=== PATIENT | female | born 2000 | race Asian ===

== ENCOUNTER 2022-10-10 19:48 | Inpatient (IN) ==
[2022-10-10 20:35] LABS: Appearance Urine Clear (Clear); Bilirubin Urine Negative (Negative); Blood Urine Negative (Negative); Color Urine Yellow; Glucose Urine UA Negative (Negative); Ketones Urine Negative (Negative); Leukocyte Esterase Urine Negative (Negative); Nitrite Urine Negative (Negative); Protein Urine Negative (Negative); Specific Gravity Urine 1.023 (1.000-1.030); Urobilinogen Urine Negative (Negative)
[2022-10-10 20:53] LABS: Basophils # (auto) 0.03 K/uL (0.00-0.20); Basophils % (auto) 0.5 %; Eosinophils # (auto) 0.05 K/uL (0.00-0.50); Eosinophils % (auto) 0.9 %; Hematocrit (blood only) 38.2 % (37.0-47.0); Hemoglobin 13.1 g/dl (12.0-16.0); Immature Granulocytes # (auto) 0.01 K/uL (0.01-0.20); Immature Granulocytes % (auto) 0.2 %; Lymphocytes # (auto) 2.16 K/uL (1.20-3.40); Lymphocytes % (auto) 36.9 %; Mean Corpuscular Hgb Conc 34.3 g/dL (32.0-36.0); Mean Corpuscular Volume 84.5 fL (80.0-100.0); Mean Platelet Volume 8.8 fL (9.4-12.4); Monocytes % (auto) 6.8 %; Neutrophils % (auto) 54.7 %; Platelet Count 348 K/uL (130-400); RDW Coefficient of Variation 11.9 % (11.5-14.5); RDW Standard Deviation 36.8 fL (36.4-46.3); Red Blood Count 4.52 M/uL (4.20-5.40); White Blood Count 5.85 K/ul (4.8-10.8)
[2022-10-10 21:04] LABS: Acetaminophen < 3 ug/ml (10-30); Salicylate < 3.0 mg/dl (3.0-30)
[2022-10-10 21:09] LABS: Amphetamines+Metham, Urine Pos (Neg); Barbiturates, Urine Neg (Neg); Benzodiazepine, Urine Neg (Neg); Cocaine, Urine Neg (Neg); MDMA (Ecstacy), Urine Neg (Neg); Methadone, Urine Neg (Neg); Opiate, Urine Neg (Neg); Phencyclidine, Urine Neg (Neg)
[2022-10-10 21:09] LABS: Albumin Globulin Ratio 1.9 (0.9-2); Albumin Level 4.9 gm/dl (3.4-5.0); BUN Creatinine Ratio 18.2 (10-20); Bilirubin,Total 0.6 mg/dl (0.2-1.0); Calcium 9.8 mg/dl (8.6-10.3); Creatinine Clr Calc Pharmacy 96.4 ml/min; Est GFR (African American) 128.8 ml/min; Est GFR (Non-African American) 111.1 ml/min; Globulin 2.6 gm/dl (2.5-4.0); Potassium 3.8 mmol/L (3.5-5.1); Total Protein 7.5 gm/dl (6.0-8.3)
--- NOTE | 2022-10-10 22:54 | Emergency Department Note ---
Impression & Plan Feeling suicidal ADMIT ED Provider Note HPI: The patient is a 22-year-old female with history of ADHD, anxiety and depression, who presents emergency department with a chief complaint of suicidal thoughts. Patient states she has been dealing with these thoughts on and off for about 1 year. Patient states that starting up at school recently here at [facility] is because multiple stressors including in the classroom and socially. Patient states that she has been having thoughts of wanting to harm herself transiently, she does mention to case management thoughts of wanting to overdose on medications. Patient arrives here voluntarily after discussing her thoughts with a friend today. On arrival here to the ED the patient is calm and cooperative, she is hemodynamically stable, she is in no acute distress otherwise. ROS: - Per HPI *Outpatient medications and allergy history reviewed. *Pertinent external medical records reviewed. PE: General: Alert HEENT: Normocephalic, trachea midline Eyes: Extraocular eye movement is intact, no scleral erythema Pulmonary: Clear to auscultation bilaterally, no wheezing Cardio: Regular rate and rhythm GI: Abdomen is soft to palpation : No suprapubic tenderness MSK: No evidence of trauma or malformation of the extremities, no edema Skin: No evidence of rash Neuro: Alert, no focal deficits Psychiatric: Cooperative Medical Decision Making: Patient was medically cleared here in the ED for assessment by case management. Patient was assessed and determined appropriate for inpatient admission for psychiatric services under a voluntary basis. Patient was in agreement to this plan. Patient was transferred to [facility] for inpatient care. Consultants: Case management Disposition discussion held by myself with: Patient and friend at bedside Diagnosis: 1. Suicidal thoughts, acute 2. Anxiety/depression, acute on chronic Disposition: Admission Don Renee DO Emergency Medicine Past Med/Surg History Medical History (Updated 10/11/22 @ 00:28 by Don Renee DO) Adopted Attention Deficit Hyperactivity Disorder (ADHD) Hyperglycemia resolved. mildly high on blood work in past. repeat normal. Surgical History History of cleft lip First repair done in [place]. Awaiting continued reconstructive surgery in [place] and scheduled just had surgery in Nov 2019. History of nasal surgery November 2019 Family History Family/Other Adopted Father Medical history unknown Mother Medical history unknown Social History (Updated 10/03/22 @ 16:49 by ANGELINA Lopez) Smoking Status: Unknown if ever smoked Second Hand Exposure: No; Do You Dip or Chew Tobacco: No; Hx Alcohol Use: Yes Alcohol type: wine Alcohol Intake Frequency: Monthly or Less Hx Substance Use: No Preferred Language: Romanian Communication Ability: Effective Visual Impairment: No Limitations Hearing Ability: Normal Television Production Technician Required: No marital status: Single Current Living Situation: Family and Other Current Living Situation Comment: adopted mom/dad and 3 sisters 1 brother, roommate when in school current occupational status: employed 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 Feels Safe at Home: Yes Childhood Exposure to Second-Hand Smoke: No Diet: regular caffeine: No during the past year weight has: remained stable Dental Care, Regularly: Yes Physical Activity Frequency: Daily Seatbelt Use: always Sunscreen Use: Yes Gender Identity: Female Assistive Devices: None Allergies Allergies Allergy/AdvReac Type Severity Reaction Status Date / Time No Known Allergies Allergy Verified 10/10/22 22:00 Home Meds Previous Rx's Medication Instructions Recorded lisdexamfetamine 30 mg capsule 30 mg PO QAM #30 caps 09/22/22 (Vyvanse) escitalopram oxalate 10 mg tablet 10 mg PO DAILY #90 tabs 10/03/22 (Lexapro) Results & Data (ED) Vital Signs Vital Signs - 24 hr 10/10/22 19:53 10/10/22 21:31 Temperature 36.9 C Temperature Source Temporal Artery Scan Pulse Rate 89 Pulse Rate [Finger] 77 Respiratory Rate 16 18 Respiratory Effort / Characteristics Non-Labored Spontaneous Respiratory Depth Normal Respiratory Pattern Regular Blood Pressure 161/101 H Blood Pressure [Left Arm] 151/101 H Blood Pressure Mean 121 Blood Pressure Mean [Left Arm] 117 Pulse Oximetry 100 100 Oxygen Delivery Method Room Air Room Air Sepsis Recent Fever Within 48 Hours No Sepsis New/Unexplained Change in Mental Status N/A Sepsis Action Taken by Nursing No Action Required Laboratory Data 10/10/22 20:29 10/10/22 20:29 Lab Results 10/10/22 10/10/22 10/10/22 Range/Units 20:08 20:08 20:08 WBC (4.8-10.8) K/ul RBC (4.20-5.40) M/uL Hgb (12.0-16.0) g/dl Hct (37.0-47.0) % MCV (80.0-100.0) fL MCH (25.0-34.0) pg MCHC (32.0-36.0) g/dL RDW Std Deviation (36.4-46.3) fL RDW Coeff of Jenn (11.5-14.5) % Plt Count (130-400) K/uL MPV (9.4-12.4) fL Immature Gran % (Auto) % Neut % (Auto) % Lymph % (Auto) % Canadian % (Auto) % Eos % (Auto) % Baso % (Auto) % Neut # (Auto) (1.40-6.50) K/uL Lymph # (Auto) (1.20-3.40) K/uL Canadian # (Auto) (0.11-0.59) K/uL Eos # (Auto) (0.00-0.50) K/uL Baso # (Auto) (0.00-0.20) K/uL Immature Gran # (Auto) (0.01-0.20) K/uL Sodium (136-145) mmol/L Potassium (3.5-5.1) mmol/L Chloride (98-107) mmol/L Carbon Dioxide (21-32) mmol/L Anion Gap (3-11) BUN (6-23) mg/dl Creatinine (0.6-1.2) mg/dl Est Cr Clr Drug Dosing ml/min Est GFR ( Amer) ml/min Est GFR (Non-Af Amer) ml/min BUN/Creatinine Ratio (10-20) Glucose (70-99(Fasting)) mg/dl Calcium (8.6-10.3) mg/dl Total Bilirubin (0.2-1.0) mg/dl AST (13-39) U/L ALT (7-52) U/L Alkaline Phosphatase (34-104) U/L Total Protein (6.0-8.3) gm/dl Albumin (3.4-5.0) gm/dl Globulin (2.5-4.0) gm/dl Albumin/Globulin Ratio (0.9-2) TSH (0.300-4.500) uIu/ml Urine Color Yellow Urine Appearance Clear (Clear) Urine pH 6.0 (4.5-7.5) Ur Specific Everett 1.023 (1.000-1.030) Urine Protein Negative (Negative) Urine Glucose (UA) Negative (Negative) Urine Ketones Negative (Negative) Urine Blood Negative (Negative) Urine Nitrite Negative (Negative) Urine Bilirubin Negative (Negative) Urine Urobilinogen Negative (Negative) Ur Leukocyte Esterase Negative (Negative) POC Ur Test NEG (NEG) Salicylates (3.0-30) mg/dl Urine Opiates Screen Neg (Neg) Ur Methadone, Qual Neg (Neg) Acetaminophen (10-30) ug/ml Urine Barbiturates Neg (Neg) Ur Phencyclidine (PCP) Neg (Neg) U Amphetamin/Meth Scrn Pos H (Neg) MDMA (Ecstasy) Screen Neg (Neg) U Benzodiazepines Scrn Neg (Neg) Ur Cocaine Metabolite Neg (Neg) U Marijuana (THC) Screen Neg (Neg) Ethyl Alcohol mg/dL (<10.0) mg/dl SARS-CoV-2, RNA, NAAT (NEGATIVE) 10/10/22 10/10/22 10/10/22 Range/Units 20:09 20:29 20:29 WBC 5.85 (4.8-10.8) K/ul RBC 4.52 (4.20-5.40) M/uL Hgb 13.1 (12.0-16.0) g/dl Hct 38.2 (37.0-47.0) % MCV 84.5 (80.0-100.0) fL MCH 29.0 (25.0-34.0) pg MCHC 34.3 (32.0-36.0) g/dL RDW Std Deviation 36.8 (36.4-46.3) fL RDW Coeff of Jenn 11.9 (11.5-14.5) % Plt Count 348 (130-400) K/uL MPV 8.8 L (9.4-12.4) fL Immature Gran % (Auto) 0.2 % Neut % (Auto) 54.7 % Lymph % (Auto) 36.9 % Canadian % (Auto) 6.8 % Eos % (Auto) 0.9 % Baso % (Auto) 0.5 % Neut # (Auto) 3.20 (1.40-6.50) K/uL Lymph # (Auto) 2.16 (1.20-3.40) K/uL Canadian # (Auto) 0.40 (0.11-0.59) K/uL Eos # (Auto) 0.05 (0.00-0.50) K/uL Baso # (Auto) 0.03 (0.00-0.20) K/uL Immature Gran # (Auto) 0.01 (0.01-0.20) K/uL Sodium 135 L (136-145) mmol/L Potassium 3.8 (3.5-5.1) mmol/L Chloride 102 (98-107) mmol/L Carbon Dioxide 26 (21-32) mmol/L Anion Gap 7 (3-11) BUN 14 (6-23) mg/dl Creatinine 0.77 (0.6-1.2) mg/dl Est Cr Clr Drug Dosing 96.4 ml/min Est GFR ( Amer) 128.8 ml/min Est GFR (Non-Af Amer) 111.1 ml/min BUN/Creatinine Ratio 18.2 (10-20) Glucose 126 H (70-99(Fasting)) mg/dl Calcium 9.8 (8.6-10.3) mg/dl Total Bilirubin 0.6 (0.2-1.0) mg/dl AST 18 (13-39) U/L ALT 11 (7-52) U/L Alkaline Phosphatase 63 (34-104) U/L Total Protein 7.5 (6.0-8.3) gm/dl Albumin 4.9 (3.4-5.0) gm/dl Globulin 2.6 (2.5-4.0) gm/dl Albumin/Globulin Ratio 1.9 (0.9-2) TSH (0.300-4.500) uIu/ml Urine Color Urine Appearance (Clear) Urine pH (4.5-7.5) Ur Specific Everett (1.000-1.030) Urine Protein (Negative) Urine Glucose (UA) (Negative) Urine Ketones (Negative) Urine Blood (Negative) Urine Nitrite (Negative) Urine Bilirubin (Negative) Urine Urobilinogen (Negative) Ur Leukocyte Esterase (Negative) POC Ur Test (NEG) Salicylates (3.0-30) mg/dl Urine Opiates Screen (Neg) Ur Methadone, Qual (Neg) Acetaminophen (10-30) ug/ml Urine Barbiturates (Neg) Ur Phencyclidine (PCP) (Neg) U Amphetamin/Meth Scrn (Neg) MDMA (Ecstasy) Screen (Neg) U Benzodiazepines Scrn (Neg) Ur Cocaine Metabolite (Neg) U Marijuana (THC) Screen (Neg) Ethyl Alcohol mg/dL (<10.0) mg/dl SARS-CoV-2, RNA, NAAT NEGATIVE (NEGATIVE) 10/10/22 10/10/22 10/10/22 Range/Units 20:29 20:29 20:29 WBC (4.8-10.8) K/ul RBC (4.20-5.40) M/uL Hgb (12.0-16.0) g/dl Hct (37.0-47.0) % MCV (80.0-100.0) fL MCH (25.0-34.0) pg MCHC (32.0-36.0) g/dL RDW Std Deviation (36.4-46.3) fL RDW Coeff of Jenn (11.5-14.5) % Plt Count (130-400) K/uL MPV (9.4-12.4) fL Immature Gran % (Auto) % Neut % (Auto) % Lymph % (Auto) % Canadian % (Auto) % Eos % (Auto) % Baso % (Auto) % Neut # (Auto) (1.40-6.50) K/uL Lymph # (Auto) (1.20-3.40) K/uL Canadian # (Auto) (0.11-0.59) K/uL Eos # (Auto) (0.00-0.50) K/uL Baso # (Auto) (0.00-0.20) K/uL Immature Gran # (Auto) (0.01-0.20) K/uL Sodium (136-145) mmol/L Potassium (3.5-5.1) mmol/L Chloride (98-107) mmol/L Carbon Dioxide (21-32) mmol/L Anion Gap (3-11) BUN (6-23) mg/dl Creatinine (0.6-1.2) mg/dl Est Cr Clr Drug Dosing ml/min Est GFR ( Amer) ml/min Est GFR (Non-Af Amer) ml/min BUN/Creatinine Ratio (10-20) Glucose (70-99(Fasting)) mg/dl Calcium (8.6-10.3) mg/dl Total Bilirubin (0.2-1.0) mg/dl AST (13-39) U/L ALT (7-52) U/L Alkaline Phosphatase (34-104) U/L Total Protein (6.0-8.3) gm/dl Albumin (3.4-5.0) gm/dl Globulin (2.5-4.0) gm/dl Albumin/Globulin Ratio (0.9-2) TSH 0.571 (0.300-4.500) uIu/ml Urine Color Urine Appearance (Clear) Urine pH (4.5-7.5) Ur Specific Everett (1.000-1.030) Urine Protein (Negative) Urine Glucose (UA) (Negative) Urine Ketones (Negative) Urine Blood (Negative) Urine Nitrite (Negative) Urine Bilirubin (Negative) Urine Urobilinogen (Negative) Ur Leukocyte Esterase (Negative) POC Ur Test (NEG) Salicylates < 3.0 L (3.0-30) mg/dl Urine Opiates Screen (Neg) Ur Methadone, Qual (Neg) Acetaminophen < 3 L (10-30) ug/ml Urine Barbiturates (Neg) Ur Phencyclidine (PCP) (Neg) U Amphetamin/Meth Scrn (Neg) MDMA (Ecstasy) Screen (Neg) U Benzodiazepines Scrn (Neg) Ur Cocaine Metabolite (Neg) U Marijuana (THC) Screen (Neg) Ethyl Alcohol mg/dL < 10.0 (<10.0) mg/dl SARS-CoV-2, RNA, NAAT (NEGATIVE) Discharge Plan Visit Data Chief Complaint: Mental Health Evaluation Stated Complaint: SUICIDAL IDEATION ED Provider: Don Renee Discharge Problem: Feeling suicidal Discharge Instructions Interventions: ED Discharge Assessment Last Done: 10/11/22 00:20 Forms Stand Alone Forms: My [facility], Suicide Prevention Resources Prescriptions Prescriptions: No Action Vyvanse 30 mg capsule 30 mg PO QAM Qty: 30 0RF escitalopram oxalate [Lexapro] 10 mg tablet 10 mg PO DAILY Qty: 90 1RF Hold Instructions: may not need if tot ADHD Referrals Referrals: Nkechi Hill MD [Primary Care Provider] -
[2022-10-11] MEDS ORDERED: SODIUM CHLORIDE 0.65% NA SOLN 45 ML (OCEAN) PRN (00:59)
[2022-10-11] MEDS ORDERED: hydrOXYzine HCl 25 MG TAB PO PRN (00:59)
[2022-10-11] MEDS ORDERED: BISMUTH SUBSALICYLATE LIQD 236 ML PO PRN (00:59)
[2022-10-11] MEDS ORDERED: MAGNESIUM HYDROXIDE SUSP 30 ML UDC PO PRN (00:59)
[2022-10-11] MEDS ORDERED: ACETAMINOPHEN 325 MG TAB PO PRN (00:59)
--- NOTE | 2022-10-11 09:09 | History & Physical ---
Date of Service October 11, 2022 Impression / Recommendations Impression 22 y/o F with history of ADHD and depression never before treated with antidepressant medication who presents with intense, intrusive suicidal thoughts. She is anxious, and it's posible that has been exacerbated by recent lisdexamfetamine trial. The anxiety appears to be a major contributor to her overall distress and anxiety. (1) Major depressive disorder, single episode, severe with anxious distress: (2) Attention Deficit Hyperactivity Disorder (ADHD): Plan The patient was admitted to the [facility] on q15 min checks (behavioral with suicide precautions) for safety. The patient will participate in group, recreational, and milieu therapies and will be offered additional individual and family sessions as clinically appropriate. Discussed treatment options. At her request focused on antidepressants potentially useful for ADHD. She voices trepidation about the uncertain nature of dosing with many antidepressants, so discussed desipramine with known therapeutic blood levels. Reviewed common anticholinergic side effects, GI side effects, headaches, and cardiac toxicity as potential side effects. She agreed to a trial of desipramine. * stop lisdexamfetamine * desipramine 25 mg daily, anticipate titration to 150 mg as tolerated * additional lab, including * vitamin B12 * folic acid * 25-OH vitamin D * ESR Inventory Assets Strengths: has local supports,voluntary, good insight, intelligent Needs: safety and stabilization, medication adjustment, additional coping skills, increased outpatient services Suicide Risk Level Suicide Risk Level: High-Moderate (q15 min suicide checks) Suicide Risk Level Comments: Currently intrusive suicidal thoughts, mostly ego-dystonic. Able to contract for safety. Risk Factors Assessment Male: No : No Do You Have Access To A Gun?: No Health Problems: No Mental Health Diagnoses: Yes Substance Use Disorders: No Previous Attempt: No Family History of Suicide: No Previous Psychiatric Hospitalization: No Hopelessness: Yes Protective Factors Assessment Quaker Beliefs: Yes : No Responsible for Young Children: No Employed: No Stable Relationships: No Supportive Family: Yes Good Rapport with Provider: Yes Psychiatric History Identifying Data TIWLA LOCKWOOD is a 22-year-old F who currently lives in [place], has a history of ADHD, and was admitted on 10/11/22 00:02 on a 201 voluntary commitment for suicidal ideation. Chief Complaint "I've been overwhelmed". History of Present Illness As part of a thorough review of the available medical records, I have read and confirmed the following note by the ED physician: "The patient is a 22-year-old female with history of ADHD, anxiety and depression, who presents emergency department with a chief complaint of suicidal thoughts. Patient states she has been dealing with these thoughts on and off for about 1 year. Patient states that starting up at school recently here at [facility] is because multiple stressors including in the classroom and socially. Patient states that she has been having thoughts of wanting to harm herself transiently, she does mention to case management thoughts of wanting to overdose on medications. Patient arrives here voluntarily after discussing her thoughts with a friend today. On arrival here to the ED the patient is calm and cooperative, she is hemodynamically stable, she is in no acute distress otherwise." and the following note by the ED psychiatric bilingual case manager: "Pt reports that she has struggled with SI for a year and recently it has gotten worse. Particularly in the past 24-48 hours it has become overwhelming. Asked patient what this means and she stated Klaudia just been thinking about it more. Pt denies having a plan or intent. However when asked to elaborate on her suicidal thoughts she states I have thought about overdosing by taking a bottle of pills. When asked about stressors patient states feeling alone and being lonely are her main stressors. Pt is a [employer] student and is from [place]. She lives in a house with one roommate, but pt lives upstairs and roommate lives downstairs so they dont interact much. Her parents live in [place] and she reports having a good relationship with them. She has a friend with her in the ER who is also supportive. Pt reports that she had a break up a year ago and that is when her suicidal ideation started. Her depression and SI have progressively gotten worse since that time. Pt does not believe that she can keep herself safe. She states It has been a struggle to survive. She fears that she will impulsively do something such as take a bottle of pills. She states I dont trust myself. Pt denies hallucinations, delusions and paranoia. She denies D&A. She has no hx of trauma or abuse. She reports that he sleep has been ok but her appetite has been decreased. Pt saw her PCP, Dr Hill last week and was prescribed Lexapro but she hasnt picked up the medication at the pharmacy yet. Pt had a therapist last spring but does not see anyone currently. She is requesting inpatient treatment at this time due to her inability to contract for safety." Review of the medical record reveals no previous or outside psychiatric records. Pt. carries diagnosis of ADHD. Review of pertinent labs reveals they are noncontributory. Urine toxicology screen that was positive for metabolites of amphetamine. BAL was <10 mg/dL. Pt endorses above history. She reports gradually-worsening depression and anxiety until about a week ago when this accelerated markedly. Over the preceding 48 hours she's "felt completely overwhelmed". She thinks recent trial of "Vyvanse might have revved up anxiety" (and she's seen no benefit). She got a prescription for escitalopram recently but has not taken any. Remains preoccupied with intrusive suicidal thoughts which are for the most part ego- dystonic. Reports no previous antidepressant trials or psychiatric admissions. Past Psychiatric History Current Psychiatric Diagnosis: Depression; ADHD Previous Psych Admissions: none Do You Have Access To A Gun?: No History of Previous Suicide Attempt: No Past Medication Trials: none Allergies Allergy/AdvReac Type Severity Reaction Status Date / Time aluminum AdvReac Mild Rash Unverified 10/11/22 00:59 Home Medications Medication Instructions Recorded Confirmed Type lisdexamfetamine 30 mg capsule 30 mg PO QAM #30 caps 09/22/22 10/10/22 Rx (Vyvanse) escitalopram oxalate 10 mg tablet 10 mg PO DAILY #90 tabs 10/03/22 10/10/22 Rx (Lexapro) Family History Family History of: Doesn't Know Alcohol History Hx of Alcohol Use Over the Past 12 Months: No AUDIT Total Score: 0 Smoking Use Have You Smoked or Used Tobacco Products in the Last 30 Days: No Smoking Status: Never smoker Substance History Hx of Prescription Med Misuse Over the Past 12 Months: No Hx of Over the Counter Med Misuse Over the Past 12 Months: No Hx of Inhalent Misuse Over the Past 12 Months: No Hx of Organic Substance Use Over the Past 12 Months: No Hx of Illegal Substances/Street Drug Use Over Past 12 Months: No Problems as a Result of Past Substance Use: None Identified Personal History Living Arrangements: Home Beliefs That Will Affect Care: None Patient History Medical History (Updated 10/11/22 @ 20:15 by Don Khan MD) Adopted Attention Deficit Hyperactivity Disorder (ADHD) Hyperglycemia resolved. mildly high on blood work in past. repeat normal. Major depressive disorder, single episode, severe with anxious distress Surgical History History of cleft lip First repair done in [place]. Awaiting continued reconstructive surgery in [place] and scheduled just had surgery in Nov 2019. History of nasal surgery November 2019 Family History Family/Other Adopted Father Medical history unknown Mother Medical history unknown Social History Smoking Status: Never smoker Second Hand Exposure: No; Do You Dip or Chew Tobacco: No; Hx Alcohol Use: Yes Alcohol type: wine Alcohol Intake Frequency: Monthly or Less Hx Substance Use: No Preferred Language: Monegasque Communication Ability: Effective Visual Impairment: No Limitations Hearing Ability: Normal Music Pastor Required: No Beliefs That Will Affect Care: None marital status: Single Current Living Situation: Family and Other Current Living Situation Comment: adopted mom/dad and 3 sisters 1 brother, roommate when in school current occupational status: employed current occupation: [employer] Feels Safe at Home: Yes Childhood Exposure to Second-Hand Smoke: No Diet: regular caffeine: No during the past year weight has: remained stable Dental Care, Regularly: Yes Physical Activity Frequency: Daily Seatbelt Use: always Sunscreen Use: Yes Gender Identity: Female Assistive Devices: None Review of Systems Psychiatric: + depression, + hopelessness, + anhedonia, + suicidal ideation, + anxiety and + difficulty concentrating; no hallucinations and no substance abuse Physical Exam Psychiatric: Orientation: alert, oriented to person, oriented to place, oriented to time and + guarded Apperance: appropriately dressed, appropriately groomed and appeared stated age Eye Contact: + poor eye contact Motor Behavior: + psychomotor retardation Speech: + abnormal rate/rhythm/volume of speech (increased latency, slow, brief, very quiet) Affect: + mood not congruent with affect (frequent shy/anxious smiling) Mood: + depressed mood and + anxious mood Thought Process: + concrete thought process; + thought association not intact Thought Content: + cognitive distortions, + hopelessness, + loneliness and + self deprecation; no delusions Suicidal Thoughts: denies suicidal plan and denies suicidal intent; + reports suicidal thoughts Homicidal Thoughts: denies homicidal thoughts Hallucinations: no auditory hallucinations and no visual hallucinations Cognition: recent memory grossly intact, remote memory grossly intact and language grossly intact; + attention not intact (distracted) Estimated Intelligence: consistent with education level Insight: + fair insight Judgment: + fair judgement Vital Signs (Past 24 Hours): Last Vital Signs Temp 36.7 C 10/11/22 06:25 Pulse 69 10/11/22 06:26 Resp 16 10/11/22 06:25 BP 119/83 10/11/22 06:26 Pulse Ox 100 10/11/22 01:18 O2 Del Method Room Air 10/11/22 01:18 Exam Statement: A physical exam was performed in the ED for the purposes of medical clearance. I accept that physical as correct and adequate for the purposes of the inpatient physical exam. Results & Data ([facility]) Laboratory Results Laboratory Results - last 24 hr 10/10/22 10/10/22 10/10/22 20:08 20:08 20:08 WBC RBC Hgb Hct MCV MCH MCHC RDW Std Deviation RDW Coeff of Jenn Plt Count MPV Immature Gran % (Auto) Neut % (Auto) Lymph % (Auto) Coke % (Auto) Eos % (Auto) Baso % (Auto) Neut # (Auto) Lymph # (Auto) Coke # (Auto) Eos # (Auto) Baso # (Auto) Immature Gran # (Auto) Sodium Potassium Chloride Carbon Dioxide Anion Gap BUN Creatinine Est Cr Clr Drug Dosing Est GFR ( Amer) Est GFR (Non-Af Amer) BUN/Creatinine Ratio Glucose Calcium Total Bilirubin AST ALT Alkaline Phosphatase Total Protein Albumin Globulin Albumin/Globulin Ratio TSH Urine Color Yellow Urine Appearance Clear Urine pH 6.0 Ur Specific Henriette 1.023 Urine Protein Negative Urine Glucose (UA) Negative Urine Ketones Negative Urine Blood Negative Urine Nitrite Negative Urine Bilirubin Negative Urine Urobilinogen Negative Ur Leukocyte Esterase Negative POC Ur Test NEG Salicylates Urine Opiates Screen Neg Ur Methadone, Qual Neg Acetaminophen Urine Barbiturates Neg Ur Phencyclidine (PCP) Neg U Amphetamines Confirm U Amphetamin/Meth Scrn Pos H U Methamphetamin Confrm MDMA (Ecstasy) Screen Neg U Benzodiazepines Scrn Neg Ur Cocaine Metabolite Neg U Marijuana (THC) Screen Neg Drug Screen Comment Ethyl Alcohol mg/dL SARS-CoV-2, RNA, NAAT 10/10/22 10/10/22 10/10/22 20:08 20:09 20:29 WBC 5.85 RBC 4.52 Hgb 13.1 Hct 38.2 MCV 84.5 MCH 29.0 MCHC 34.3 RDW Std Deviation 36.8 RDW Coeff of Jenn 11.9 Plt Count 348 MPV 8.8 L Immature Gran % (Auto) 0.2 Neut % (Auto) 54.7 Lymph % (Auto) 36.9 Coke % (Auto) 6.8 Eos % (Auto) 0.9 Baso % (Auto) 0.5 Neut # (Auto) 3.20 Lymph # (Auto) 2.16 Coke # (Auto) 0.40 Eos # (Auto) 0.05 Baso # (Auto) 0.03 Immature Gran # (Auto) 0.01 Sodium Potassium Chloride Carbon Dioxide Anion Gap BUN Creatinine Est Cr Clr Drug Dosing Est GFR ( Amer) Est GFR (Non-Af Amer) BUN/Creatinine Ratio Glucose Calcium Total Bilirubin AST ALT Alkaline Phosphatase Total Protein Albumin Globulin Albumin/Globulin Ratio TSH Urine Color Urine Appearance Urine pH Ur Specific Henriette Urine Protein Urine Glucose (UA) Urine Ketones Urine Blood Urine Nitrite Urine Bilirubin Urine Urobilinogen Ur Leukocyte Esterase POC Ur Test Salicylates Urine Opiates Screen Ur Methadone, Qual Acetaminophen Urine Barbiturates Ur Phencyclidine (PCP) U Amphetamines Confirm Pending U Amphetamin/Meth Scrn U Methamphetamin Confrm Pending MDMA (Ecstasy) Screen U Benzodiazepines Scrn Ur Cocaine Metabolite U Marijuana (THC) Screen Drug Screen Comment Pending Ethyl Alcohol mg/dL SARS-CoV-2, RNA, NAAT NEGATIVE 10/10/22 10/10/22 10/10/22 20:29 20:29 20:29 WBC RBC Hgb Hct MCV MCH MCHC RDW Std Deviation RDW Coeff of Jenn Plt Count MPV Immature Gran % (Auto) Neut % (Auto) Lymph % (Auto) Coke % (Auto) Eos % (Auto) Baso % (Auto) Neut # (Auto) Lymph # (Auto) Coke # (Auto) Eos # (Auto) Baso # (Auto) Immature Gran # (Auto) Sodium 135 L Potassium 3.8 Chloride 102 Carbon Dioxide 26 Anion Gap 7 BUN 14 Creatinine 0.77 Est Cr Clr Drug Dosing 96.4 Est GFR ( Amer) 128.8 Est GFR (Non-Af Amer) 111.1 BUN/Creatinine Ratio 18.2 Glucose 126 H Calcium 9.8 Total Bilirubin 0.6 AST 18 ALT 11 Alkaline Phosphatase 63 Total Protein 7.5 Albumin 4.9 Globulin 2.6 Albumin/Globulin Ratio 1.9 TSH 0.571 Urine Color Urine Appearance Urine pH Ur Specific Henriette Urine Protein Urine Glucose (UA) Urine Ketones Urine Blood Urine Nitrite Urine Bilirubin Urine Urobilinogen Ur Leukocyte Esterase POC Ur Test Salicylates < 3.0 L Urine Opiates Screen Ur Methadone, Qual Acetaminophen < 3 L Urine Barbiturates Ur Phencyclidine (PCP) U Amphetamines Confirm U Amphetamin/Meth Scrn U Methamphetamin Confrm MDMA (Ecstasy) Screen U Benzodiazepines Scrn Ur Cocaine Metabolite U Marijuana (THC) Screen Drug Screen Comment Ethyl Alcohol mg/dL SARS-CoV-2, RNA, NAAT 10/10/22 20:29 WBC RBC Hgb Hct MCV MCH MCHC RDW Std Deviation RDW Coeff of Jenn Plt Count MPV Immature Gran % (Auto) Neut % (Auto) Lymph % (Auto) Coke % (Auto) Eos % (Auto) Baso % (Auto) Neut # (Auto) Lymph # (Auto) Coke # (Auto) Eos # (Auto) Baso # (Auto) Immature Gran # (Auto) Sodium Potassium Chloride Carbon Dioxide Anion Gap BUN Creatinine Est Cr Clr Drug Dosing Est GFR ( Amer) Est GFR (Non-Af Amer) BUN/Creatinine Ratio Glucose Calcium Total Bilirubin AST ALT Alkaline Phosphatase Total Protein Albumin Globulin Albumin/Globulin Ratio TSH Urine Color Urine Appearance Urine pH Ur Specific Henriette Urine Protein Urine Glucose (UA) Urine Ketones Urine Blood Urine Nitrite Urine Bilirubin Urine Urobilinogen Ur Leukocyte Esterase POC Ur Test Salicylates Urine Opiates Screen Ur Methadone, Qual Acetaminophen Urine Barbiturates Ur Phencyclidine (PCP) U Amphetamines Confirm U Amphetamin/Meth Scrn U Methamphetamin Confrm MDMA (Ecstasy) Screen U Benzodiazepines Scrn Ur Cocaine Metabolite U Marijuana (THC) Screen Drug Screen Comment Ethyl Alcohol mg/dL < 10.0 SARS-CoV-2, RNA, NAAT Current Inpatient Medications Current Inpatient Medications: Current Inpatient Medications Acetaminophen (Acetaminophen 325 Mg Tab) 650 mg PO Q4H PRN PRN Reason: Headache or Minor Fever Stop: 11/10/22 00:58 Last Admin: 10/11/22 01:54 Dose: 650 mg Bismuth Subsalicylate (Bismuth Subsalicylate Liqd 236 Ml) 15 ml PO PRN PRN PRN Reason: Loose Stool Stop: 11/10/22 00:58 Hydroxyzine HCl (Hydroxyzine Hcl 25 Mg Tab) 50 mg PO HSZ PRN PRN Reason: Insomnia Stop: 11/10/22 00:58 Hydroxyzine HCl (Hydroxyzine Hcl 25 Mg Tab) 25 mg PO Q4H PRN PRN Reason: Anxiety Stop: 11/10/22 00:58 Magnesium Hydroxide (Magnesium Hydroxide Susp 30 Ml Udc) 30 ml PO DAILY PRN PRN Reason: Constipation Stop: 11/10/22 00:58 Sodium Chloride (Sodium Chloride 0.65% Na Soln 45 Ml ([place])) 1 - 2 sprays NA PRN PRN PRN Reason: Nasal Dryness/Congestion Stop: 11/10/22 00:58
[2022-10-11] MEDS: hydrOXYzine HCl 25 MG TAB PO PRN (23:29)
[2022-10-12] MEDS: DESIPRAMINE HCL 25 MG TAB PO SCH (08:57)
--- NOTE | 2022-10-12 14:51 | Psychiatric Progress Note ---
Date of Service October 12, 2022 Impression / Recommendations Impression 22 y/o F with history of ADHD and depression never before treated with antidepressant medication who presents with intense, intrusive suicidal thoughts. She is anxious, and it's posible that has been exacerbated by recent lisdexamfetamine trial. The anxiety appears to be a major contributor to her overall distress and anxiety. 10/12/2022: Pt reports that she "slept better last night with those sleeping pills" (hydroxyzine) and woke feeling not only rested but energetic. However, she "started feeling sleepy later in the morning" and wonders if "it could be the new medication" (desipramine). Additional lab noncontributory. (1) Major depressive disorder, single episode, severe with anxious distress: (2) Attention Deficit Hyperactivity Disorder (ADHD): Plan 10/12/2022: * continue desipramine 25 mg daily, anticipate titration to 150 mg as tolerated, but will not increase tomorrow due to possible sedation - started 10/11/2022 10/11/2022: The patient was admitted to the [facility] on q15 min checks (behavioral with suicide precautions) for safety. The patient will participate in group, recreational, and milieu therapies and will be offered additional individual and family sessions as clinically appropriate. Discussed treatment options. At her request focused on antidepressants potentially useful for ADHD. She voices trepidation about the uncertain nature of dosing with many antidepressants, so discussed desipramine with known therapeutic blood levels. Reviewed common anticholinergic side effects, GI side effects, headaches, and cardiac toxicity as potential side effects. She agreed to a trial of desipramine. * stop lisdexamfetamine * desipramine 25 mg daily, anticipate titration to 150 mg as tolerated * additional lab, including * vitamin B12 * folic acid * 25-OH vitamin D * ESR Inventory Assets Strengths: has local supports,voluntary, good insight, intelligent Needs: safety and stabilization, medication adjustment, additional coping skills, increased outpatient services Suicide Risk Level Suicide Risk Level: High-Moderate (q15 min suicide checks) Suicide Risk Level Comments: Currently intrusive suicidal thoughts, mostly ego-dystonic. Able to contract for safety. Risk Factors Assessment Male: No : No Do You Have Access To A Gun?: No Health Problems: No Mental Health Diagnoses: Yes Substance Use Disorders: No Previous Attempt: No Family History of Suicide: No Previous Psychiatric Hospitalization: No Hopelessness: Yes Protective Factors Assessment Anabaptist Beliefs: Yes : No Responsible for Young Children: No Employed: No Stable Relationships: No Supportive Family: Yes Good Rapport with Provider: Yes Interval History Identifying Information TWILA LOCKWOOD is a 22-year-old F who currently lives with a male roommate in [place], has a history of ADHD, and was admitted on 10/11/22 00:02 on a 201 voluntary commitment for suicidal ideation. Chief Complaint "I'm... OK. I guess". Review of Systems Sleep Information Total Hours of Sleep: 5.5 Sleep Comments: new admit at 0030 Meal Information Percent Meal Consumed - Breakfast: 100 Percent Meal Consumed - Lunch: 100 Percent Meal Consumed - Dinner: 100 Subjective Subjective Patient was seen & assessed and interval progress reviewed in a multidisciplin marguerite team meeting with the treatment team. For details, see the "Impression" section. Physical Exam Psychiatric Orientation: alert, oriented to person, oriented to place, oriented to time and + guarded Apperance: appropriately dressed, appropriately groomed and appeared stated age Eye Contact: + poor eye contact Motor Behavior: + psychomotor retardation Speech: + abnormal rate/rhythm/volume of speech (increased latency, slow, brief, very quiet) Affect: + mood not congruent with affect (frequent shy/anxious smiling) Mood: + depressed mood and + anxious mood Thought Process: + concrete thought process; + thought association not intact Thought Content: + cognitive distortions, + hopelessness, + loneliness and + scott f deprecation; no delusions Suicidal Thoughts: denies suicidal plan and denies suicidal intent; + reports suicidal thoughts Homicidal Thoughts: denies homicidal thoughts Hallucinations: no auditory hallucinations and no visual hallucinations Cognition: recent memory grossly intact, remote memory grossly intact and language grossly intact; + attention not intact (distracted) Estimated Intelligence: consistent with education level Insight: + fair insight Judgment: + fair judgement Vital Signs (Past 24 Hours) Last Vital Signs Temp 36.4 C L 10/12/22 06:42 Pulse 60 10/12/22 06:43 Resp 16 10/12/22 06:42 BP 117/82 10/12/22 06:43 Pulse Ox 100 10/11/22 01:18 O2 Del Method Room Air 10/11/22 01:18 Results & Data ([facility]) Laboratory Results Laboratory Results - last 24 hr 10/11/22 10/11/22 10/11/22 20:57 20:57 20:57 ESR 13 Vitamin B12 305 25-OH Vitamin D Total Folate > 22.30 10/11/22 20:57 ESR Vitamin B12 25-OH Vitamin D Total 21.4 Folate Current Inpatient Medications Current Inpatient Medications: Current Inpatient Medications Acetaminophen (Acetaminophen 325 Mg Tab) 650 mg PO Q4H PRN PRN Reason: Headache or Minor Fever Stop: 11/10/22 00:58 Last Admin: 10/11/22 01:54 Dose: 650 mg Bismuth Subsalicylate (Bismuth Subsalicylate Liqd 236 Ml) 15 ml PO PRN PRN PRN Reason: Loose Stool Stop: 11/10/22 00:58 Desipramine HCl (Desipramine Hcl 25 Mg Tab) 25 mg PO DAILY MANGO Stop: 11/11/22 08:59 Last Admin: 10/12/22 08:57 Dose: 25 mg Hydroxyzine HCl (Hydroxyzine Hcl 25 Mg Tab) 50 mg PO HSZ PRN PRN Reason: Insomnia Stop: 11/10/22 00:58 Last Admin: 10/11/22 23:29 Dose: 50 mg Hydroxyzine HCl (Hydroxyzine Hcl 25 Mg Tab) 25 mg PO Q4H PRN PRN Reason: Anxiety Stop: 11/10/22 00:58 Magnesium Hydroxide (Magnesium Hydroxide Susp 30 Ml Udc) 30 ml PO DAILY PRN PRN Reason: Constipation Stop: 11/10/22 00:58 Sodium Chloride (Sodium Chloride 0.65% Na Soln 45 Ml ([place])) 1 - 2 sprays NA PRN PRN PRN Reason: Nasal Dryness/Congestion Stop: 11/10/22 00:58 Mental Health & Subst Abuse Tx Therapist Name of Therapist: None Seal Mixer Name of Seal Mixer: None Post Discharge Appointments Primary Care Physician Name Of Family Doctor/PCP: Yariel Hill Primary Care Provider Appointment Comment: [address], [place] [address]
[2022-10-12] MEDS: hydrOXYzine HCl 25 MG TAB PO PRN (21:43)
[2022-10-13] MEDS: DESIPRAMINE HCL 25 MG TAB PO SCH (08:48)
--- NOTE | 2022-10-13 09:31 | Psychiatric Progress Note ---
Date of Service October 13, 2022 Impression / Recommendations Impression 22 y/o F with history of ADHD and depression never before treated with antidepressant medication who presents with intense, intrusive suicidal thoughts. She is anxious, and it's posible that has been exacerbated by recent lisdexamfetamine trial. The anxiety appears to be a major contributor to her overall distress and anxiety. 10/13/2022: Has continued to voice substantial suicidality. Remains guarded (perhaps especially around men). [place] somewhat sleepy again this morning but would like to increase desipramine as we'd originally planned. 10/12/2022: Pt reports that she "slept better last night with those sleeping pills" (hydroxyzine) and woke feeling not only rested but energetic. However, she "started feeling sleepy later in the morning" and wonders if "it could be the new medication" (desipramine). Additional lab noncontributory. (1) Major depressive disorder, single episode, severe with anxious distress: (2) Attention Deficit Hyperactivity Disorder (ADHD): Plan 10/13/2022: * increase desipramine to 50 mg daily, anticipate titration to 150 mg as tolerated - started 10/11/2022 at 25 mg 10/12/2022: * continue desipramine 25 mg daily, anticipate titration to 150 mg as tolerated, but will not increase tomorrow due to possible sedation - started 10/11/2022 10/11/2022: The patient was admitted to the [facility] ([facility] mental health unit) on q15 min checks (behavioral with suicide precautions) for safety. The patient will participate in group, recreational, and milieu therapies and will be offered additional individual and family sessions as clinically appropriate. Discussed treatment options. At her request focused on antidepressants potentially useful for ADHD. She voices trepidation about the uncertain nature of dosing with many antidepressants, so discussed desipramine with known therapeutic blood levels. Reviewed common anticholinergic side effects, GI side effects, headaches, and cardiac toxicity as potential side effects. She agreed to a trial of desipramine. * stop lisdexamfetamine * desipramine 25 mg daily, anticipate titration to 150 mg as tolerated * additional lab, including * vitamin B12 * folic acid * 25-OH vitamin D * ESR Inventory Assets Strengths: has local supports,voluntary, good insight, intelligent Needs: safety and stabilization, medication adjustment, additional coping skills, increased outpatient services Suicide Risk Level Suicide Risk Level: Moderate (q15 min suicide checks) Suicide Risk Level Comments: no longer having intrusive suicidal thoughts, which had been mostly ego- dystonic. Able to contract for safety. Risk Factors Assessment Male: No : No Do You Have Access To A Gun?: No Health Problems: No Mental Health Diagnoses: Yes Substance Use Disorders: No Previous Attempt: No Family History of Suicide: No Previous Psychiatric Hospitalization: No Hopelessness: Yes Protective Factors Assessment Protestant Beliefs: Yes : No Responsible for Young Children: No Employed: No Stable Relationships: No Supportive Family: Yes Good Rapport with Provider: Yes Interval History Identifying Information TWILA LOCKWOOD is a 22-year-old F who currently lives with a male roommate in [place], has a history of ADHD, and was admitted on 10/11/22 00:02 on a 201 voluntary commitment for suicidal ideation. Chief Complaint "I'm... OK". Review of Systems Sleep Information Total Hours of Sleep: 6.5 Sleep Comments: new admit at 0030 Meal Information Percent Meal Consumed - Breakfast: 100 Percent Meal Consumed - Lunch: 100 Percent Meal Consumed - Dinner: 100 Subjective Subjective Patient was seen & assessed and interval progress reviewed in a multidisciplinary team meeting with the treatment team. For details, see the "Impression" section. Physical Exam Psychiatric Orientation: alert, oriented to person, oriented to place, oriented to time and + guarded Apperance: appropriately dressed, appropriately groomed and appeared stated age Eye Contact: + poor eye contact Motor Behavior: + psychomotor retardation Speech: + abnormal rate/rhythm/volume of speech (increased latency, slow, brief, very quiet) Affect: + mood not congruent with affect (frequent shy/anxious smiling) Mood: + depressed mood and + anxious mood Thought Process: + concrete thought process; + thought association not intact Thought Content: + cognitive distortions, + hopelessness, + loneliness and + self deprecation; no delusions Suicidal Thoughts: denies suicidal plan and denies suicidal intent; + reports suicidal thoughts Homicidal Thoughts: denies homicidal thoughts Hallucinations: no auditory hallucinations and no visual hallucinations Cognition: recent memory grossly intact, remote memory grossly intact and language grossly intact; + attention not intact (distracted) Estimated Intelligence: consistent with education level Insight: + fair insight Judgment: + fair judgement Vital Signs (Past 24 Hours) Last Vital Signs Temp 36.8 C 10/13/22 06:47 Pulse 87 10/13/22 06:48 Resp 16 10/13/22 06:47 BP 115/61 10/13/22 06:48 Pulse Ox 100 10/11/22 01:18 O2 Del Method Room Air 10/11/22 01:18 Results & Data ([facility]) Current Inpatient Medications Current Inpatient Medications: Current Inpatient Medications Acetaminophen (Acetaminophen 325 Mg Tab) 650 mg PO Q4H PRN PRN Reason: Headache or Minor Fever Stop: 11/10/22 00:58 Last Admin: 10/11/22 01:54 Dose: 650 mg Bismuth Subsalicylate (Bismuth Subsalicylate Liqd 236 Ml) 15 ml PO PRN PRN PRN Reason: Loose Stool Stop: 11/10/22 00:58 Desipramine HCl (Desipramine Hcl 25 Mg Tab) 25 mg PO DAILY MANGO Stop: 11/11/22 08:59 Last Admin: 10/13/22 08:48 Dose: 25 mg Hydroxyzine HCl (Hydroxyzine Hcl 25 Mg Tab) 50 mg PO HSZ PRN PRN Reason: Insomnia Stop: 11/10/22 00:58 Last Admin: 10/12/22 21:43 Dose: 50 mg Hydroxyzine HCl (Hydroxyzine Hcl 25 Mg Tab) 25 mg PO Q4H PRN PRN Reason: Anxiety Stop: 11/10/22 00:58 Magnesium Hydroxide (Magnesium Hydroxide Susp 30 Ml Udc) 30 ml PO DAILY PRN PRN Reason: Constipation Stop: 11/10/22 00:58 Sodium Chloride (Sodium Chloride 0.65% Na Soln 45 Ml ([place])) 1 - 2 sprays NA PRN PRN PRN Reason: Nasal Dryness/Congestion Stop: 11/10/22 00:58 Mental Health & Subst Abuse Tx Therapist Name of Therapist: None Line Up Machine Operator Name of Line Up Machine Operator: None Post Discharge Appointments Primary Care Physician Name Of Family Doctor/PCP: [facility] Time of Appointment with PCP: [address], [place] [address] Provider Appointment Comment: [address], [place] [address]
[2022-10-13 09:52] LABS: Amphetamine Urine, Confirm 3833 ng/mL (<250); Methamphetamine, Ur Confirm NEGATIVE ng/mL (<250)
[2022-10-14] MEDS: DESIPRAMINE HCL 25 MG TAB PO SCH (09:05)
--- NOTE | 2022-10-14 09:39 | Psychiatric Progress Note ---
Date of Service October 14, 2022 Impression / Recommendations Impression Agree with assessment per Dr. Merino's: 22 y/o F with history of ADHD and depression never before treated with antidepressant medication who presents with intense, intrusive suicidal thoughts. She is anxious, and it's posible that has been exacerbated by recent lisdexamfetamine trial. The anxiety appears to be a major contributor to her overall distress and anxiety. 10/14/2022: Ongoing intermittent SI but mood slowly improving. Tolerating initial doses of desipramine, agreeable to dose increase today to 50mg daily. Discussed light therapy and mindfulness/breathing strategies. Overall, I spent a total of 50 minutes with this case including review of chart records, direct evaluation of the patient at bedside, counseling the patient, discussion during interdisciplinary treatment rounds, risk assessment, and documentation in the electronic health record. (1) Major depressive disorder, single episode, severe with anxious distress: (2) Attention Deficit Hyperactivity Disorder (ADHD): Plan 10/14/2022: Increased desipramine to 50mg daily today. 10/13/2022: * increase desipramine to 50 mg daily, anticipate titration to 150 mg as tolerated - started 10/11/2022 at 25 mg 10/12/2022: * continue desipramine 25 mg daily, anticipate titration to 150 mg as tolerated, but will not increase tomorrow due to possible sedation - started 10/11/2022 10/11/2022: The patient was admitted to the [facility] ([facility] mental health unit) on q15 min checks (behavioral with suicide precautions) for safety. The patient will participate in group, recreational, and milieu therapies and will be offered additional individual and family sessions as clinically appropriate. Discussed treatment options. At her request focused on antidepressants potentially useful for ADHD. She voices trepidation about the uncertain nature of dosing with many antidepressants, so discussed desipramine with known therapeutic blood levels. Reviewed common anticholinergic side effects, GI side effects, headaches, and cardiac toxicity as potential side effects. She agreed to a trial of desipramine. * stop lisdexamfetamine * desipramine 25 mg daily, anticipate titration to 150 mg as tolerated * additional lab, including * vitamin B12 * folic acid * 25-OH vitamin D * ESR Inventory Assets Strengths: has local supports,voluntary, good insight, intelligent Needs: safety and stabilization, medication adjustment, additional coping skills, increased outpatient services Suicide Risk Level Suicide Risk Level: Moderate (q15 min suicide checks) (depression with intrusive SI, feels safe on the unit, able to let staff know if she needs additional support or feels unsafe) Risk Factors Assessment Male: No : No Do You Have Access To A Gun?: No Health Problems: No Mental Health Diagnoses: Yes Substance Use Disorders: No Previous Attempt: No Family History of Suicide: No Previous Psychiatric Hospitalization: No Hopelessness: Yes Protective Factors Assessment Mosque Beliefs: Yes : No Responsible for Young Children: No Employed: No Stable Relationships: No Supportive Family: Yes Good Rapport with Provider: Yes Interval History Identifying Information TWILA LOCKWOOD is a 22-year-old F who currently lives with a male roommate in [place], has a history of ADHD, and was admitted on 10/11/22 00:02 on a 201 voluntary commitment for suicidal ideation. Chief Complaint "I've been drowsy but a little so far today". Review of Systems Sleep Information Total Hours of Sleep: 5.75 Sleep Comments: Meal Information Percent Meal Consumed - Breakfast: 90 Percent Meal Consumed - Lunch: 100 Percent Meal Consumed - Dinner: 100 Subjective Subjective Patient was seen & assessed and interval progress reviewed with treatment team nursing and social work. [place] spirtually disconnected yesterday, clock assembler consult placed. Slept 5.75 hours last night and then slept in this morning for another 2 hours. Awake for breakfast. Interactive with peers. Had been feeling drowsy last two days but didn't take Vistaril last night and hoping this helps with energy level today. Agreeable to increasing desipramine. Physical Exam Psychiatric Orientation: alert and oriented x 3 Apperance: appropriately dressed, appropriately groomed and appeared stated age Eye Contact: + fair eye contact Motor Behavior: no abnormal motor movements Speech: + abnormal rate/rhythm/volume of speech (latent, quiet) Affect: + anxious affect and + constricted affect Mood: + depressed mood and + anxious mood Thought Process: + circumstantial thought process and + concrete thought process Thought Content: + cognitive distortions, reality based without delusions, + loneliness and + self deprecation Suicidal Thoughts: denies suicidal plan and denies suicidal intent; + reports suicidal thoughts Homicidal Thoughts: denies homicidal thoughts Hallucinations: no auditory hallucinations and no visual hallucinations Cognition: recent memory grossly intact, remote memory grossly intact and language grossly intact; + attention not intact (distracted) Estimated Intelligence: consistent with education level Insight: + fair insight Judgment: + fair judgement Vital Signs (Past 24 Hours) Last Vital Signs Temp 37.0 C 10/14/22 06:52 Pulse 76 10/14/22 06:52 Resp 16 10/14/22 06:52 BP 125/71 10/14/22 06:52 Pulse Ox 99 10/14/22 06:52 O2 Del Method Room Air 10/14/22 06:52 Results & Data ([facility]) Laboratory Results Laboratory Results - last 24 hr 10/10/22 20:08 U Amphetamines Confirm 3833 H U Methamphetamin Confrm NEGATIVE Drug Screen Comment SEE NOTE Current Inpatient Medications Current Inpatient Medications: Current Inpatient Medications Acetaminophen (Acetaminophen 325 Mg Tab) 650 mg PO Q4H PRN PRN Reason: Headache or Minor Fever Stop: 11/10/22 00:58 Last Admin: 10/11/22 01:54 Dose: 650 mg Bismuth Subsalicylate (Bismuth Subsalicylate Liqd 236 Ml) 15 ml PO PRN PRN PRN Reason: Loose Stool Stop: 11/10/22 00:58 Desipramine HCl (Desipramine Hcl 25 Mg Tab) 25 mg PO DAILY MANGO Stop: 11/11/22 08:59 Last Admin: 10/14/22 09:05 Dose: 25 mg Hydroxyzine HCl (Hydroxyzine Hcl 25 Mg Tab) 50 mg PO HSZ PRN PRN Reason: Insomnia Stop: 11/10/22 00:58 Last Admin: 10/12/22 21:43 Dose: 50 mg Hydroxyzine HCl (Hydroxyzine Hcl 25 Mg Tab) 25 mg PO Q4H PRN PRN Reason: Anxiety Stop: 11/10/22 00:58 Magnesium Hydroxide (Magnesium Hydroxide Susp 30 Ml Udc) 30 ml PO DAILY PRN PRN Reason: Constipation Stop: 11/10/22 00:58 Last Admin: 10/14/22 09:07 Dose: 30 ml Sodium Chloride (Sodium Chloride 0.65% Na Soln 45 Ml ([place])) 1 - 2 sprays NA PRN PRN PRN Reason: Nasal Dryness/Congestion Stop: 11/10/22 00:58 Mental Health & Subst Abuse Tx Therapist Name of Therapist: None Assistant Women'S Tennis Coach Name of Assistant Women'S Tennis Coach: None Post Discharge Appointments Primary Care Physician Name Of Family Doctor/PCP: [facility] Time of Appointment with PCP: [address] [place] [address] Provider Appointment Comment: [address] [place] [address]
[2022-10-14] MEDS ORDERED: DESIPRAMINE HCL 25 MG TAB PO ONE (10:19)
[2022-10-14] MEDS: hydrOXYzine HCl 25 MG TAB PO PRN (21:13)
[2022-10-15] MEDS ORDERED: DESIPRAMINE HCL 50 MG TAB PO SCH (09:00)
--- NOTE | 2022-10-15 09:27 | Psychiatric Progress Note ---
Date of Service October 15, 2022 Impression / Recommendations Impression Agree with assessment per Dr. Merino's: 22 y/o F with history of ADHD and depression never before treated with antidepressant medication who presents with intense, intrusive suicidal thoughts. She is anxious, and it's posible that has been exacerbated by recent lisdexamfetamine trial. The anxiety appears to be a major contributor to her overall distress and anxiety. 10/15/2022: Ongoing depression and anxiety, still not sleeping very well overnight and then with daytime fatigue. Discussed ongoing titration of desipramine and goal of consolidating to HS dose to help with sleep and limit sedating effects which she is in agreement with. Overall, I spent a total of 35 minutes with this case including review of chart records, direct evaluation of the patient at bedside, counseling the patient, discussion during interdisciplinary treatment rounds, risk assessment, and documentation in the electronic health record. (1) Major depressive disorder, single episode, severe with anxious distress: (2) Attention Deficit Hyperactivity Disorder (ADHD): Plan 10/15/2022: Increase desipramine with 25mg dose at HS. Starting tomorrow if well tolerated will move to desipramine 75mg HS. 10/14/2022: Increased desipramine to 50mg daily today. 10/13/2022: * increase desipramine to 50 mg daily, anticipate titration to 150 mg as tolerated - started 10/11/2022 at 25 mg 10/12/2022: * continue desipramine 25 mg daily, anticipate titration to 150 mg as tolerated, but will not increase tomorrow due to possible sedation - started 10/11/2022 10/11/2022: The patient was admitted to the [facility] ([facility] health [facility]) on q15 min checks (behavioral with suicide precautions) for safety. The patient will participate in group, recreational, and milieu therapies and will be offered additional individual and family sessions as clinically appropriate. Discussed treatment options. At her request focused on antidepressants potentially useful for ADHD. She voices trepidation about the uncertain nature of dosing with many antidepressants, so discussed desipramine with known therapeutic blood levels. Reviewed common anticholinergic side effects, GI side effects, headaches, and cardiac toxicity as potential side effects. She agreed to a trial of desipramine. * stop lisdexamfetamine * desipramine 25 mg daily, anticipate titration to 150 mg as tolerated * additional lab, including * vitamin B12 * folic acid * 25-OH vitamin D * ESR Inventory Assets Strengths: has local supports,voluntary, good insight, intelligent Needs: safety and stabilization, medication adjustment, additional coping skills, increased outpatient services Suicide Risk Level Suicide Risk Level: Moderate (q15 min suicide checks) (depression with intrusive SI, feels safe on the unit, able to let staff know if she needs additional support or feels unsafe) Suicide Risk Level Comments: . Risk Factors Assessment Male: No : No Do You Have Access To A Gun?: No Health Problems: No Mental Health Diagnoses: Yes Substance Use Disorders: No Previous Attempt: No Family History of Suicide: No Previous Psychiatric Hospitalization: No Hopelessness: Yes Protective Factors Assessment Druze Beliefs: Yes : No Responsible for Young Children: No Employed: No Stable Relationships: No Supportive Family: Yes Good Rapport with Provider: Yes Interval History Identifying Information MARY LOCKWOOD is a 22-year-old F who currently lives with a male roommate in [place], has a history of ADHD, and was admitted on 10/11/22 00:02 on a 201 voluntary commitment for suicidal ideation. Chief Complaint "I'm ok, I have more stress since talking to my parents". Review of Systems Sleep Information Total Hours of Sleep: 5 Meal Information Percent Meal Consumed - Breakfast: 90 Percent Meal Consumed - Lunch: 100 Percent Meal Consumed - Dinner: 100 Subjective Subjective Patient was seen & assessed and interval progress reviewed with treatment team nursing and social work. Had a good phone call with her parents last night, has decided to drop one of her classes and then to change her major in the spring. Slept in. Took a nap yesterday due to some fatigue. Today initially felt ok but then mood worsened after a phone call this morning with her parents. Feels her mother is trying to be supportive but also sometimes says things that make her "overthink I guess" such as discussing her concerns about Mary Grubbs missing classes and not being able to catch up on school work. Mary Grubbs remains worried about leaving the hospital too soon as she fears she will get very overwhelmed again and start to feel unsafe. Physical Exam Psychiatric Orientation: alert and oriented x 3 Apperance: appropriately dressed, appropriately groomed and appeared stated age Eye Contact: + fair eye contact Motor Behavior: no abnormal motor movements Speech: + abnormal rate/rhythm/volume of speech (latent, quiet) Affect: + anxious affect and + constricted affect Mood: + depressed mood and + anxious mood Thought Process: + circumstantial thought process and + concrete thought process Thought Content: + cognitive distortions, reality based without delusions, + loneliness and + self deprecation Suicidal Thoughts: denies suicidal plan and denies suicidal intent; + reports suicidal thoughts Homicidal Thoughts: denies homicidal thoughts Hallucinations: no auditory hallucinations and no visual hallucinations Cognition: recent memory grossly intact, remote memory grossly intact and language grossly intact; + attention not intact (distracted) Estimated Intelligence: consistent with education level Insight: + fair insight Judgment: + fair judgement Vital Signs (Past 24 Hours) Last Vital Signs Temp 36.7 C 10/15/22 06:55 Pulse 76 10/15/22 06:55 Resp 18 10/15/22 06:55 BP 115/74 10/15/22 06:55 Pulse Ox 97 10/15/22 06:55 O2 Del Method Room Air 10/15/22 06:55 Results & Data ([facility]) Current Inpatient Medications Current Inpatient Medications: Current Inpatient Medications Acetaminophen (Acetaminophen 325 Mg Tab) 650 mg PO Q4H PRN PRN Reason: Headache or Minor Fever Stop: 11/10/22 00:58 Last Admin: 10/11/22 01:54 Dose: 650 mg Bismuth Subsalicylate (Bismuth Subsalicylate Liqd 236 Ml) 15 ml PO PRN PRN PRN Reason: Loose Stool Stop: 11/10/22 00:58 Desipramine HCl (Desipramine Hcl 50 Mg Tab) 50 mg PO DAILY MANGO Stop: 11/14/22 08:59 Hydroxyzine HCl (Hydroxyzine Hcl 25 Mg Tab) 50 mg PO HSZ PRN PRN Reason: Insomnia Stop: 11/10/22 00:58 Last Admin: 10/14/22 21:13 Dose: 50 mg Hydroxyzine HCl (Hydroxyzine Hcl 25 Mg Tab) 25 mg PO Q4H PRN PRN Reason: Anxiety Stop: 11/10/22 00:58 Magnesium Hydroxide (Magnesium Hydroxide Susp 30 Ml Udc) 30 ml PO DAILY PRN PRN Reason: Constipation Stop: 11/10/22 00:58 Last Admin: 10/14/22 09:07 Dose: 30 ml Sodium Chloride (Sodium Chloride 0.65% Na Soln 45 Ml ([place])) 1 - 2 sprays NA PRN PRN PRN Reason: Nasal Dryness/Congestion Stop: 11/10/22 00:58 Mental Health & Subst Abuse Tx Therapist Name of Therapist: None Bright Cutter Name of Bright Cutter: None Post Discharge Appointments Primary Care Physician Name Of Family Doctor/PCP: [facility] Time of Appointment with PCP: [address], [place] [address] Provider Appointment Comment: [address], [place] [address]
[2022-10-15] MEDS ORDERED: DESIPRAMINE HCL 25 MG TAB PO ONE (21:00)
--- NOTE | 2022-10-16 09:27 | Psychiatric Progress Note ---
Date of Service October 16, 2022 Impression / Recommendations Impression Agree with assessment per Dr. Merino's: 22 y/o F with history of ADHD and depression never before treated with antidepressant medication who presents with intense, intrusive suicidal thoughts. She is anxious, and it's posible that has been exacerbated by recent lisdexamfetamine trial. The anxiety appears to be a major contributor to her overall distress and anxiety. 10/16/2022: Ongoing depression and anxiety but mood slowly improving with lessening of SI. Will switch to consolidated desipramine at HS to reduce daytime fatigue, will monitor for any worsening of night sweats. Discussed option for IOP after discharge to help her continue to build her confidence in using coping skills and devloping more CBT skills which she is very interested in. Overall, I spent a total of 36 minutes with this case including review of chart records, direct evaluation of the patient at bedside, counseling the patient, discussion during interdisciplinary treatment rounds, risk assessment, and documentation in the electronic health record. (1) Major depressive disorder, single episode, severe with anxious distress: (2) Attention Deficit Hyperactivity Disorder (ADHD): Plan 10/16/2022: Consolidate desipramine to 75mg HS, Goal of reaching 100mg 10/15/2022: Increase desipramine with 25mg dose at HS. Starting tomorrow if well tolerated will move to desipramine 75mg HS. 10/14/2022: Increased desipramine to 50mg daily today. 10/13/2022: * increase desipramine to 50 mg daily, anticipate titration to 150 mg as tolerated - started 10/11/2022 at 25 mg 10/12/2022: * continue desipramine 25 mg daily, anticipate titration to 150 mg as tolerated, but will not increase tomorrow due to possible sedation - started 10/11/2022 10/11/2022: The patient was admitted to the [facility] ([facility] mental health unit) on q15 min checks (behavioral with suicide precautions) for safety. The patient will participate in group, recreational, and milieu therapies and will be offered additional individual and family sessions as clinically appropriate. Discussed treatment options. At her request focused on antidepressants potentially useful for ADHD. She voices trepidation about the uncertain nature of dosing with many antidepressants, so discussed desipramine with known therapeutic blood levels. Reviewed common anticholinergic side effects, GI side effects, headaches, and cardiac toxicity as potential side effects. She agreed to a trial of desipramine. * stop lisdexamfetamine * desipramine 25 mg daily, anticipate titration to 150 mg as tolerated * additional lab, including * vitamin B12 * folic acid * 25-OH vitamin D * ESR Inventory Assets Strengths: has local supports,voluntary, good insight, intelligent Needs: safety and stabilization, medication adjustment, additional coping skills, increased outpatient services Suicide Risk Level Suicide Risk Level: Moderate (q15 min suicide checks) (depression with intrusive SI, feels safe on the unit, able to let staff know if she needs additional support or feels unsafe) Suicide Risk Level Comments: . Risk Factors Assessment Male: No : No Do You Have Access To A Gun?: No Health Problems: No Mental Health Diagnoses: Yes Substance Use Disorders: No Previous Attempt: No Family History of Suicide: No Previous Psychiatric Hospitalization: No Hopelessness: Yes Protective Factors Assessment Judaism Beliefs: Yes : No Responsible for Young Children: No Employed: No Stable Relationships: No Supportive Family: Yes Good Rapport with Provider: Yes Interval History Identifying Information TWILA LOCKWOOD is a 22-year-old F who currently lives with a male roommate in [place], has a history of ADHD, and was admitted on 10/11/22 00:02 on a 201 voluntary commitment for suicidal ideation. Chief Complaint "I definitely was getting in my head". Review of Systems Sleep Information Total Hours of Sleep: 6.5 Meal Information Percent Meal Consumed - Breakfast: 100 Percent Meal Consumed - Lunch: 50 Percent Meal Consumed - Dinner: 100 Subjective Subjective Patient was seen & assessed and interval progress reviewed with treatment team nursing and social work. Attending groups and interactive with peers. Feels her mood is improving but still nervous her symptoms will worsen after discharge. She continues to find talking to people helpful. Had some night sweats last night, she's had this in the past isn't sure if this could be connected to the medication. Some fleeting SI yesterday, but none so far today. Physical Exam Psychiatric Orientation: alert and oriented x 3 Apperance: appropriately dressed, appropriately groomed and appeared stated age Eye Contact: + fair eye contact Motor Behavior: no abnormal motor movements Speech: + abnormal rate/rhythm/volume of speech (quiet) Affect: + anxious affect Mood: + depressed mood and + anxious mood Thought Process: + circumstantial thought process and + concrete thought process Thought Content: + cognitive distortions and reality based without delusions Suicidal Thoughts: denies suicidal plan and denies suicidal intent; + reports suicidal thoughts (intermittent, none so far today) Homicidal Thoughts: denies homicidal thoughts Hallucinations: no auditory hallucinations and no visual hallucinations Cognition: recent memory grossly intact, remote memory grossly intact and language grossly intact; + attention not intact (distracted) Estimated Intelligence: consistent with education level Insight: + fair insight Judgment: + fair judgement Vital Signs (Past 24 Hours) Last Vital Signs Temp 36.7 C 10/16/22 06:46 Pulse 88 10/16/22 06:46 Resp 16 10/16/22 06:46 BP 113/70 10/16/22 06:46 Pulse Ox 97 10/15/22 06:55 O2 Del Method Room Air 10/15/22 06:55 Results & Data ([facility] [[email or web address] Current Inpatient Medications Current Inpatient Medications: Current Inpatient Medications Acetaminophen (Acetaminophen 325 Mg Tab) 650 mg PO Q4H PRN PRN Reason: Headache or Minor Fever Stop: 11/10/22 00:58 Last Admin: 10/11/22 01:54 Dose: 650 mg Bismuth Subsalicylate (Bismuth Subsalicylate Liqd 236 Ml) 15 ml PO PRN PRN PRN Reason: Loose Stool Stop: 11/10/22 00:58 Desipramine HCl (Desipramine Hcl 25 Mg Tab) 75 mg PO HS MANGO Stop: 11/15/22 21:59 Hydroxyzine HCl (Hydroxyzine Hcl 25 Mg Tab) 50 mg PO HSZ PRN PRN Reason: Insomnia Stop: 11/10/22 00:58 Last Admin: 10/14/22 21:13 Dose: 50 mg Hydroxyzine HCl (Hydroxyzine Hcl 25 Mg Tab) 25 mg PO Q4H PRN PRN Reason: Anxiety Stop: 11/10/22 00:58 Magnesium Hydroxide (Magnesium Hydroxide Susp 30 Ml Udc) 30 ml PO DAILY PRN PRN Reason: Constipation Stop: 11/10/22 00:58 Last Admin: 10/14/22 09:07 Dose: 30 ml Sodium Chloride (Sodium Chloride 0.65% Na Soln 45 Ml ([place])) 1 - 2 sprays NA PRN PRN PRN Reason: Nasal Dryness/Congestion Stop: 11/10/22 00:58 Mental Health & Subst Abuse Tx Therapist Name of Therapist: None Paperhanger And Painter Name of Paperhanger And Painter: None Post Discharge Appointments Primary Care Physician Name Of Family Doctor/PCP: [facility] Time of Appointment with PCP: [address] [place], [place] [address] Provider Appointment Comment: [address] [place], [place] [address]
[2022-10-16] MEDS: DESIPRAMINE HCL 25 MG TAB PO SCH (21:44)
[2022-10-16] MEDS: hydrOXYzine HCl 25 MG TAB PO PRN (22:06)
--- NOTE | 2022-10-17 09:11 | Psychiatric Progress Note ---
Date of Service October 17, 2022 Impression / Recommendations Impression Agree with assessment per Dr. Merino's: 22 y/o F with history of ADHD and depression never before treated with antidepressant medication who presents with intense, intrusive suicidal thoughts. She is anxious, and it's posible that has been exacerbated by recent lisdexamfetamine trial. The anxiety appears to be a major contributor to her overall distress and anxiety. 10/17/2022: Mood improving, no SI but still with some anxiety about how she will do outside of structure of the inpatient setting but hopeful about doing the IOP and having this as a step-down from the inpatient level of care. No further drowsiness with consolidation of desipramine at bedtime. She prefers to stay on the current dose. Overall, I spent a total of 35 minutes with this case including review of chart records, direct evaluation of the patient at bedside, counseling the patient, discussion during interdisciplinary treatment rounds, risk assessment, and documentation in the electronic health record. (1) Major depressive disorder, single episode, severe with anxious distress: (2) Attention Deficit Hyperactivity Disorder (ADHD): (3) PEYMAN (generalized anxiety disorder): Plan 10/17/2022: Continue with desipramine 75mg HS given her preference. Option to increase to 100mg HS in the future. 10/16/2022: Consolidate desipramine to 75mg HS, Goal of reaching 100mg 10/15/2022: Increase desipramine with 25mg dose at HS. Starting tomorrow if well tolerated will move to desipramine 75mg HS. 10/14/2022: Increased desipramine to 50mg daily today. 10/13/2022: * increase desipramine to 50 mg daily, anticipate titration to 150 mg as tolerated - started 10/11/2022 at 25 mg 10/12/2022: * continue desipramine 25 mg daily, anticipate titration to 150 mg as tolerated, but will not increase tomorrow due to possible sedation - started 10/11/2022 10/11/2022: The patient was admitted to the [facility] ([facility] unit) on q15 min checks (behavioral with suicide precautions) for safety. The patient will participate in group, recreational, and milieu therapies and will be offered additional individual and family sessions as clinically appropriate. Discussed treatment options. At her request focused on antidepressants potentially useful for ADHD. She voices trepidation about the uncertain nature of dosing with many antidepressants, so discussed desipramine with known therapeutic blood levels. Reviewed common anticholinergic side effects, GI side effects, headaches, and cardiac toxicity as potential side effects. She agreed to a trial of desipramine. * stop lisdexamfetamine * desipramine 25 mg daily, anticipate titration to 150 mg as tolerated * additional lab, including * vitamin B12 * folic acid * 25-OH vitamin D * ESR Inventory Assets Strengths: has local supports,voluntary, good insight, intelligent Needs: safety and stabilization, medication adjustment, additional coping skills, increased outpatient services Suicide Risk Level Suicide Risk Level: Moderate (q15 min suicide checks) (depression with intrusive SI, no longer with SI, mood improving, feels safe on the unit, able to let staff know if she needs additional support or feels unsafe) Suicide Risk Level Comments: . Risk Factors Assessment Male: No : No Do You Have Access To A Gun?: No Health Problems: No Mental Health Diagnoses: Yes Substance Use Disorders: No Previous Attempt: No Family History of Suicide: No Previous Psychiatric Hospitalization: No Hopelessness: Yes Protective Factors Assessment Hinduism Beliefs: Yes : No Responsible for Young Children: No Employed: No Stable Relationships: No Supportive Family: Yes Good Rapport with Provider: Yes Interval History Identifying Information TWILA LOCKWOOD is a 22-year-old F who currently lives with a male roommate in [place], has a history of ADHD, and was admitted on 10/11/22 00:02 on a 201 voluntary commitment for suicidal ideation. Chief Complaint "I'm ok". Review of Systems Sleep Information Total Hours of Sleep: 6 Meal Information Percent Meal Consumed - Breakfast: 100 Percent Meal Consumed - Lunch: 100 Percent Meal Consumed - Dinner: 100 Subjective Subjective Patient was seen & assessed and interval progress reviewed with treatment team nursing and social work. Attending groups, interactive with peers, affect has been brighter. Reports her mood is "ok" but also "excited with my progress here". Expresses gratitude for the groups and medication adjustments and how helpful she's finding inpatient treatment. Had her family meeting this morning which she feels went well. She is going to do intake for [facility] and feels this will help with her anxiety about leaving the inpatient setting. No drowsiness so far today with consolidation to desipramine at HS. She'd like to stay at the current dose as she's finding it very helpful and feels she could increase in the future if needed. Remains nervous about how she'll feel after discharge without all the support from the inpatient setting. Physical Exam Psychiatric Orientation: alert and oriented x 3 Apperance: appropriately dressed, appropriately groomed and appeared stated age Eye Contact: good eye contact Motor Behavior: no abnormal motor movements Speech: normal rate/rhythm/volume of speech Affect: + anxious affect Mood: + anxious mood Thought Process: clear/coherent thought process and + circumstantial thought process Thought Content: reality based without delusions Suicidal Thoughts: denies suicidal thoughts, denies suicidal plan and denies suicidal intent Homicidal Thoughts: denies homicidal thoughts Hallucinations: no auditory hallucinations and no visual hallucinations Cognition: recent memory grossly intact, remote memory grossly intact, attention grossly intact and language grossly intact Estimated Intelligence: consistent with education level Insight: + fair insight Judgment: + fair judgement Vital Signs (Past 24 Hours) Last Vital Signs Temp 36.7 C 10/17/22 06:47 Pulse 93 H 10/17/22 06:48 Resp 16 10/17/22 06:47 BP 115/74 10/17/22 06:48 Pulse Ox 97 10/15/22 06:55 O2 Del Method Room Air 10/15/22 06:55 Results & Data ([facility]) Current Inpatient Medications Current Inpatient Medications: Current Inpatient Medications Acetaminophen (Acetaminophen 325 Mg Tab) 650 mg PO Q4H PRN PRN Reason: Headache or Minor Fever Stop: 11/10/22 00:58 Last Admin: 10/11/22 01:54 Dose: 650 mg Bismuth Subsalicylate (Bismuth Subsalicylate Liqd 236 Ml) 15 ml PO PRN PRN PRN Reason: Loose Stool Stop: 11/10/22 00:58 Desipramine HCl (Desipramine Hcl 25 Mg Tab) 75 mg PO HS MANGO Stop: 11/15/22 21:59 Last Admin: 10/16/22 21:44 Dose: 75 mg Hydroxyzine HCl (Hydroxyzine Hcl 25 Mg Tab) 50 mg PO HSZ PRN PRN Reason: Insomnia Stop: 11/10/22 00:58 Last Admin: 10/16/22 22:06 Dose: 50 mg Hydroxyzine HCl (Hydroxyzine Hcl 25 Mg Tab) 25 mg PO Q4H PRN PRN Reason: Anxiety Stop: 11/10/22 00:58 Magnesium Hydroxide (Magnesium Hydroxide Susp 30 Ml Udc) 30 ml PO DAILY PRN PRN Reason: Constipation Stop: 11/10/22 00:58 Last Admin: 10/14/22 09:07 Dose: 30 ml Sodium Chloride (Sodium Chloride 0.65% Na Soln 45 Ml ([place])) 1 - 2 sprays NA PRN PRN PRN Reason: Nasal Dryness/Congestion Stop: 11/10/22 00:58 Mental Health & Subst Abuse Tx Therapist Name of Therapist: None Clay Stain Mixer Name of Clay Stain Mixer: None Post Discharge Appointments Primary Care Physician Name Of Family Doctor/PCP: [facility] Time of Appointment with PCP: [address] [place], [place] [address] Provider Appointment Comment: [id number] [place] [address]
[2022-10-17] MEDS: DESIPRAMINE HCL 25 MG TAB PO SCH (21:53)
--- NOTE | 2022-10-18 09:04 | Discharge Summary ---
Date of Service October 18, 2022 History of Present Illness As part of a thorough review of the available medical records, I have read and confirmed the following note by the ED physician: "The patient is a 22-year-old female with history of ADHD, anxiety and depression, who presents emergency department with a chief complaint of suicidal thoughts. Patient states she has been dealing with these thoughts on and off for about 1 year. Patient states that starting up at school recently here at [facility] is because multiple stressors including in the classroom and socially. Patient states that she has been having thoughts of wanting to harm herself transiently, she does mention to case management thoughts of wanting to overdose on medications. Patient arrives here voluntarily after discussing her thoughts with a friend today. On arrival here to the ED the patient is calm and cooperative, she is hemodynamically stable, she is in no acute distress otherwise." and the following note by the ED psychiatric casework manager: "Pt reports that she has struggled with SI for a year and recently it has gotten worse. Particularly in the past 24-48 hours it has become overwhelming. Asked patient what this means and she stated Klaudia just been thinking about it more. Pt denies having a plan or intent. However when asked to elaborate on her suicidal thoughts she states I have thought about overdosing by taking a bottle of pills. When asked about stressors patient states feeling alone and being lonely are her main stressors. Pt is a [employer] student and is from [place]. She lives in a house with one roommate, but pt lives upstairs and roommate lives downstairs so they dont interact much. Her parents live in [place] and she reports having a good relationship with them. She has a friend with her in the ER who is also supportive. Pt reports that she had a break up a year ago and that is when her suicidal ideation started. Her depression and SI have progressively gotten worse since that time. Pt does not believe that she can keep herself safe. She states It has been a struggle to survive. She fears that she will impulsively do something such as take a bottle of pills. She states I dont trust myself. Pt denies hallucinations, delusions and paranoia. She denies D&A. She has no hx of trauma or abuse. She reports that he sleep has been ok but her appetite has been decreased. Pt saw her PCP, Dr Hill last week and was prescribed Lexapro but she hasnt picked up the medication at the pharmacy yet. Pt had a therapist last spring but does not see anyone currently. She is requesting inpatient treatment at this time due to her inability to contract for safety." Review of the medical record reveals no previous or outside psychiatric records. Pt. carries diagnosis of ADHD. Review of pertinent labs reveals they are noncontributory. Urine toxicology screen that was positive for metabolites of amphetamine. BAL was <10 mg/dL. Pt endorses above history. She reports gradually-worsening depression and anx iety until about a week ago when this accelerated markedly. Over the preceding 48 hours she's "felt completely overwhelmed". She thinks recent trial of "Vyvanse might have revved up anxiety" (and she's seen no benefit). She got a prescription for escitalopram recently but has not taken any. Remains preoccupied with intrusive suicidal thoughts which are for the most part ego- dystonic. Reports no previous antidepressant trials or psychiatric admissions. Physical Exam Vital Signs (Past 24 Hours) Last Vital Signs Temp 36.7 C 10/18/22 06:46 Pulse 93 H 10/18/22 06:46 Resp 16 10/18/22 06:46 BP 117/71 10/18/22 06:46 Pulse Ox 97 10/15/22 06:55 O2 Del Method Room Air 10/15/22 06:55 See admission H&P and DOD summary. Principal Diagnosis Major Depressive Disorder Psychiatric Data See daily stay summary. In short, patient was engaged with the social/therapeutic milieu of the unit, safety was maintained and the patient was cooperative with care. Medication changes included initiation and titration of desipramine 100mg po HS for depression, anxiety and ADHD and they tolerated this well. Option for desipramine to be increased to 100mg HS if depression worsens in the future. A family session was held and safety plan was completed prior to discharge. She actively and insightfully participated in safety planning and in discussions about ways to seek support and recognizing warning signs and utilizing coping skills. Reviewed mobile apps that could be used for additional ways to have their safety plan and contacts easily available should thoughts of SI re-emerge in the future. Reviewed importance of seeking emergency care should SI intensify, worsen or should they feel unsafe in the future which they agree to do. On the day of discharge she stated her mood was "excited and a little nervous" and remained future-oriented including seeing her friend/mentor, being outside and engaging in [facility] appointments for [facility] [employer] [facility] and advocacy. Day of Discharge Assessment Today the patient voices readiness for discharge. They note improvement in mood and anxiety. They deny thoughts of harm to self or others. Thoughts are organized and they are clinically improved from admission. There is no evidence of psychosis. They improved in the hospital with support and medication adjustments. They agree to take medications as prescribed and keep follow-up appointments. At the time of the discharge they are deemed to be stable and appropriate for outpatient level of care. They are not deemed to be at imminent risk of harm to self or others. They are aware of emergency and crisis services. Knows to call 911 or go to nearest emergency care center if in a crisis which cannot be handled as an outpatient. Overall, I spent a total of 40 minutes including review of chart records, direct evaluation of the patient, counseling the patient, discussion during i nterdisciplinary treatment rounds, risk assessment, and documentation in the electronic health record. Transition of Care Transition Of Care Record: was reviewed with the patient Advance Directives Advance Directives Information Provided: Yes Advance Directives: No Mental Health Advance Directive: No Advance Directives on File: No Living Will: No Power of Pie Topper: No Advance Directives Reason:: Declines as Mental Health Visit. Suicide Risk Level Suicide Risk Level Comments: Acute risk is low given improvement in mood and denial of SI, lack of access to lethal means, improvement in sleep and hopefulness. Chronic risk is low to moderate given few non-modifiable risk factors: psychiatric co-morbid diagnoses, emotional reactivity but also with protective factors including: student, good social support, sense of responsibility to family and social supports, outpatient care in place, positive coping skills, positive problem solving, capacity to establish therapeutic alliance, willingness to engage with treatment, capacity for self-observation. Counseled on ways to reduce acute and chronic risk including engaging with outpatient providers, using safety plan if needed, utilizing supports, taking medication, and using coping skills. Modifiable risk factors of SI and depression were addressed during hospitalization through development of new coping skills, family meeting, safety planning, and medication adjustments. Risk Factors Assessment Male: No : No Do You Have Access To A Gun?: No Health Problems: No Mental Health Diagnoses: Yes Substance Use Disorders: No Previous Attempt: No Family History of Suicide: No Previous Psychiatric Hospitalization: No Hopelessness: No Protective Factors Assessment Evangelical Beliefs: Yes : No Responsible for Young Children: No Employed: No Stable Relationships: Yes Supportive Family: Yes Good Rapport with Provider: Yes Discharge Data Lab Results 10/10/22 10/10/22 10/10/22 20:08 20:08 20:08 WBC RBC Hgb Hct MCV MCH MCHC RDW Std Deviation RDW Coeff of Jenn Plt Count MPV Immature Gran % (Auto) Neut % (Auto) Lymph % (Auto) [place] % (Auto) Eos % (Auto) Baso % (Auto) Neut # (Auto) Lymph # (Auto) [place] # (Auto) Eos # (Auto) Baso # (Auto) Immature Gran # (Auto) ESR Sodium Potassium Chloride Carbon Dioxide Anion Gap BUN Creatinine Est Cr Clr Drug Dosing Est GFR ( Amer) Est GFR (Non-Af Amer) BUN/Creatinine Ratio Glucose Calcium Total Bilirubin AST ALT Alkaline Phosphatase Total Protein Albumin Globulin Albumin/Globulin Ratio Vitamin B12 25-OH Vitamin D Total Folate TSH Urine Color Yellow Urine Appearance Clear Urine pH 6.0 Ur Specific [place] 1.023 Urine Protein Negative Urine Glucose (UA) Negative Urine Ketones Negative Urine Blood Negative Urine Nitrite Negative Urine Bilirubin Negative Urine Urobilinogen Negative Ur Leukocyte Esterase Negative POC Ur Test NEG Salicylates Urine Opiates Screen Neg Ur Methadone, Qual Neg Acetaminophen Urine Barbiturates Neg Ur Phencyclidine (PCP) Neg U Amphetamines Confirm U Amphetamin/Meth Scrn Pos H U Methamphetamin Confrm MDMA (Ecstasy) Screen Neg U Benzodiazepines Scrn Neg Ur Cocaine Metabolite Neg U Marijuana (THC) Screen Neg Drug Screen Comment Ethyl Alcohol mg/dL SARS-CoV-2, RNA, NAAT 10/10/22 10/10/22 10/10/22 20:08 20:09 20:29 WBC 5.85 RBC 4.52 Hgb 13.1 Hct 38.2 MCV 84.5 MCH 29.0 MCHC 34.3 RDW Std Deviation 36.8 RDW Coeff of Jenn 11.9 Plt Count 348 MPV 8.8 L Immature Gran % (Auto) 0.2 Neut % (Auto) 54.7 Lymph % (Auto) 36.9 [place] % (Auto) 6.8 Eos % (Auto) 0.9 Baso % (Auto) 0.5 Neut # (Auto) 3.20 Lymph # (Auto) 2.16 [place] # (Auto) 0.40 Eos # (Auto) 0.05 Baso # (Auto) 0.03 Immature Gran # (Auto) 0.01 ESR Sodium Potassium Chloride Carbon Dioxide Anion Gap BUN Creatinine Est Cr Clr Drug Dosing Est GFR ( Amer) Est GFR (Non-Af Amer) BUN/Creatinine Ratio Glucose Calcium Total Bilirubin AST ALT Alkaline Phosphatase Total Protein Albumin Globulin Albumin/Globulin Ratio Vitamin B12 25-OH Vitamin D Total Folate TSH Urine Color Urine Appearance Urine pH Ur Specific [place] Urine Protein Urine Glucose (UA) Urine Ketones Urine Blood Urine Nitrite Urine Bilirubin Urine Urobilinogen Ur Leukocyte Esterase POC Ur Test Salicylates Urine Opiates Screen Ur Methadone, Qual Acetaminophen Urine Barbiturates Ur Phencyclidine (PCP) U Amphetamines Confirm 3833 H U Amphetamin/Meth Scrn U Methamphetamin Confrm NEGATIVE MDMA (Ecstasy) Screen U Benzodiazepines Scrn Ur Cocaine Metabolite U Marijuana (THC) Screen Drug Screen Comment SEE NOTE Ethyl Alcohol mg/dL SARS-CoV-2, RNA, NAAT NEGATIVE 10/10/22 10/10/22 10/10/22 20:29 20:29 20:29 WBC RBC Hgb Hct MCV MCH MCHC RDW Std Deviation RDW Coeff of Jenn Plt Count MPV Immature Gran % (Auto) Neut % (Auto) Lymph % (Auto) [place] % (Auto) Eos % (Auto) Baso % (Auto) Neut # (Auto) Lymph # (Auto) [place] # (Auto) Eos # (Auto) Baso # (Auto) Immature Gran # (Auto) ESR Sodium 135 L Potassium 3.8 Chloride 102 Carbon Dioxide 26 Anion Gap 7 BUN 14 Creatinine 0.77 Est Cr Clr Drug Dosing 96.4 Est GFR ( Amer) 128.8 Est GFR (Non-Af Amer) 111.1 BUN/Creatinine Ratio 18.2 Glucose 126 H Calcium 9.8 Total Bilirubin 0.6 AST 18 ALT 11 Alkaline Phosphatase 63 Total Protein 7.5 Albumin 4.9 Globulin 2.6 Albumin/Globulin Ratio 1.9 Vitamin B12 25-OH Vitamin D Total Folate TSH 0.571 Urine Color Urine Appearance Urine pH Ur Specific [place] Urine Protein Urine Glucose (UA) Urine Ketones Urine Blood Urine Nitrite Urine Bilirubin Urine Urobilinogen Ur Leukocyte Esterase POC Ur Test Salicylates < 3.0 L Urine Opiates Screen Ur Methadone, Qual Acetaminophen < 3 L Urine Barbiturates Ur Phencyclidine (PCP) U Amphetamines Confirm U Amphetamin/Meth Scrn U Methamphetamin Confrm MDMA (Ecstasy) Screen U Benzodiazepines Scrn Ur Cocaine Metabolite U Marijuana (THC) Screen Drug Screen Comment Ethyl Alcohol mg/dL SARS-CoV-2, RNA, NAAT 10/10/22 10/11/22 10/11/22 20:29 20:57 20:57 WBC RBC Hgb Hct MCV MCH MCHC RDW Std Deviation RDW Coeff of Jenn Plt Count MPV Immature Gran % (Auto) Neut % (Auto) Lymph % (Auto) [place] % (Auto) Eos % (Auto) Baso % (Auto) Neut # (Auto) Lymph # (Auto) [place] # (Auto) Eos # (Auto) Baso # (Auto) Immature Gran # (Auto) ESR 13 Sodium Potassium Chloride Carbon Dioxide Anion Gap BUN Creatinine Est Cr Clr Drug Dosing Est GFR ( Amer) Est GFR (Non-Af Amer) BUN/Creatinine Ratio Glucose Calcium Total Bilirubin AST ALT Alkaline Phosphatase Total Protein Albumin Globulin Albumin/Globulin Ratio Vitamin B12 25-OH Vitamin D Total Folate > 22.30 TSH Urine Color Urine Appearance Urine pH Ur Specific [place] Urine Protein Urine Glucose (UA) Urine Ketones Urine Blood Urine Nitrite Urine Bilirubin Urine Urobilinogen Ur Leukocyte Esterase POC Ur Test Salicylates Urine Opiates Screen Ur Methadone, Qual Acetaminophen Urine Barbiturates Ur Phencyclidine (PCP) U Amphetamines Confirm U Amphetamin/Meth Scrn U Methamphetamin Confrm MDMA (Ecstasy) Screen U Benzodiazepines Scrn Ur Cocaine Metabolite U Marijuana (THC) Screen Drug Screen Comment Ethyl Alcohol mg/dL < 10.0 SARS-CoV-2, RNA, NAAT 10/11/22 10/11/22 20:57 20:57 WBC RBC Hgb Hct MCV MCH MCHC RDW Std Deviation RDW Coeff of Jenn Plt Count MPV Immature Gran % (Auto) Neut % (Auto) Lymph % (Auto) [place] % (Auto) Eos % (Auto) Baso % (Auto) Neut # (Auto) Lymph # (Auto) [place] # (Auto) Eos # (Auto) Baso # (Auto) Immature Gran # (Auto) ESR Sodium Potassium Chloride Carbon Dioxide Anion Gap BUN Creatinine Est Cr Clr Drug Dosing Est GFR ( Amer) Est GFR (Non-Af Amer) BUN/Creatinine Ratio Glucose Calcium Total Bilirubin AST ALT Alkaline Phosphatase Total Protein Albumin Globulin Albumin/Globulin Ratio Vitamin B12 305 25-OH Vitamin D Total 21.4 Folate TSH Urine Color Urine Appearance Urine pH Ur Specific [place] Urine Protein Urine Glucose (UA) Urine Ketones Urine Blood Urine Nitrite Urine Bilirubin Urine Urobilinogen Ur Leukocyte Esterase POC Ur Test Salicylates Urine Opiates Screen Ur Methadone, Qual Acetaminophen Urine Barbiturates Ur Phencyclidine (PCP) U Amphetamines Confirm U Amphetamin/Meth Scrn U Methamphetamin Confrm MDMA (Ecstasy) Screen U Benzodiazepines Scrn Ur Cocaine Metabolite U Marijuana (THC) Screen Drug Screen Comment Ethyl Alcohol mg/dL SARS-CoV-2, RNA, NAAT Hospital Course (1) Major depressive disorder, single episode, severe with anxious distress: (2) Attention Deficit Hyperactivity Disorder (ADHD): (3) PEYMAN (generalized anxiety disorder): Plan 10/17/2022: Continue with desipramine 75mg HS given her preference. Option to increase to 100mg HS in the future. 10/16/2022: Consolidate desipramine to 75mg HS, Goal of reaching 100mg 10/15/2022: Increase desipramine with 25mg dose at HS. Starting tomorrow if well tolerated will move to desipramine 75mg HS. 10/14/2022: Increased desipramine to 50mg daily today. 10/13/2022: * increase desipramine to 50 mg daily, anticipate titration to 150 mg as tolerated - started 10/11/2022 at 25 mg 10/12/2022: * continue desipramine 25 mg daily, anticipate titration to 150 mg as tolerated, but will not increase tomorrow due to possible sedation - started 10/11/2022 10/11/2022: [facility] on q15 min checks (behavioral with suicide precautions) for safety. The patient will participate in group, recreational, and milieu therapies and will be offered additional individual and family sessions as clinically appropriate. Discussed treatment options. At her request focused on antidepressants potentially useful for ADHD. She voices trepidation about the uncertain nature of dosing with many antidepressants, so discussed desipramine with known therapeutic blood levels. Reviewed common anticholinergic side effects, GI side effects, headaches, and cardiac toxicity as potential side effects. She agreed to a trial of desipramine. * stop lisdexamfetamine * desipramine 25 mg daily, anticipate titration to 150 mg as tolerated * additional lab, including * vitamin B12 * folic acid * 25-OH vitamin D * ESR Mental Health & Subst Abuse Tx Psychiatrist Name of Psychiatrist: [facility] Psychiatrist's Time of Appointment with Psychiatrist: [address], [place] [address] Psychiatric Appointment Comment: Please call to establish psychiatry if needed. Therapist Name of Therapist: [facility] Therapist's Time of Therapist Appointment: [facility] [id number], [place] [address] Therapy Appointment Comment: You have been placed on the waitlist. Please follow-up for more details. Theology Teacher Name of Theology Teacher: None Post Discharge Appointments Primary Care Physician Name Of Family Doctor/PCP: [facility] Time of Appointment with PCP: Please follow-up with PCP as needed. Provider Appointment Comment: [address] [facility], [place] [address] Other #1: [facility] Phone Number of Aftercare Appointment: [phone] Discharge Plan Discharge Items Patient Disposition: Home - Self-Care Reason For Visit: MAJOR DEPRESSIVE DISORDER Discharge Diagnosis: Major Depressive Disorder Activity: Resume your previous activity Non-emergency contact: Primary Care Provider and Therapist Call non-emergency contact if: you have any medication questions and your symptoms worsen Follow-up/Referrals: Nkechi Hill MD [Primary Care Provider] - Diet: Regular Addtl Attending Provider Instructions: Optional mobile apps we discussed: -Suicide safety plan -Virtual Hope Box SPECIAL CARE INSTRUCTIONS: 1. Follow through with your scheduled aftercare appointments. If unable to keep an appointment, please call to reschedule. 2. Take your medication only as prescribed. Medication should not be changed or stopped without the approval of your doctor. In the event of worsening symptoms or concerns about side effects, contact your doctor immediately. 3. Utilize new healthy coping skills, anger management skills, and stress management skills learned during your hospitalization. Journal feelings and process them with a support person. Identify stressors or situations that may result in relapse, deterioration or inappropriate behaviors and develop a plan to deal with those issues. 4. If your coping skills are ineffective and you are in crisis, contact your outpatient providers for direction. If unable to reach your providers, please call the [facility] CRISIS LINE AT , go to the [facility] walk-in center at [address], [place], or go to the closest Emergency Room. 5. Avoid alcohol and un-prescribed drugs. 6. You have been provided with the Mental Health Advance Directives Pamphlet for your review. 7. Your condition is stable for discharge to outpatient level of care, but recovery is an ongoing process. Ifthoughts to harm yourself or others return, follow the safety plan developed during your stay. Planning for a safe return home includes securing weapons. Our treatment team recommends weaponsbe removed from the home until your outpatient provider reassesses your progress. In rare cases where the items themselvescannot be removed, guns and ammunitionshould be secured separatelyand keys stored by a reliable personoutside of the home. If you were admitted on an involuntary commitment, the police or other legal authorities may be involved in this process. AFTERCARE APPOINTMENTS: * Please call your insurance company prior to your scheduled appointment to confirm your aftercare providers are covered. Take your insurance information to your appointments. WHO TO CALL AND WHEN: Medical Emergencies: For questions or emergencies related to your hospital stay, please contact the Inpatient Behavioral Health Unit at [phone]. A brine mixer operator is on-call 04/09 for the Behavioral Health Unit for emergencies At any time you feel your situation is an emergency, you may also call 911 immediately. National Crisis Hotline: 984 Pending Studies at Discharge: No Stand-Alone Forms: My [facility] Medications and DC Order Prescriptions: New hydroxyzine HCl 25 mg Tablet 25 mg PO DAILY PRN (Reason: anxiety/insomnia) 30 Days Qty: 30 0RF desipramine 75 mg tablet 75 mg PO HS 30 Days Qty: 30 0RF Discontinued Vyvanse 30 mg capsule 30 mg PO QAM Qty: 30 0RF escitalopram oxalate [Lexapro] 10 mg tablet 10 mg PO DAILY Qty: 90 1RF Hold Instructions: may not need if tot ADHD Discharge Orders: Discharge Order (Routine); Ordered 10/18/22 Ordered By: Allie Leonard Admission Data Admit Date/Time: 10/11/22 00:02 Attending Provider: Allie Leonard Admit Provider: Don Khan Primary Care Provider: Nkechi Hill Other Interventions: Discharge Summary Assessment (RN) Last Done: 10/18/22 10:08 PSY Interdisciplinary Discharge Planning Last Done: 10/18/22 10:03 Coding Level of Care Code 83597 D/C day mgmt > 30 min Diagnoses Major depressive disorder, single episode, severe with anxious distress F32.2 Attention Deficit Hyperactivity Disorder (ADHD) F90.9 PEYMAN (generalized anxiety disorder) F41.1 Time Spent (min) 40
== END 2022-10-18 12:00 | disposition home or self-care (01) | DRG 885 ==
LOC: ED 19:48 → 3S 10-11 00:02 → SUATTDRO 10-11 00:02 → 3S 10-11 00:20